=== PATIENT | female | born 2000 | race Hispanic/Latino ===

== ENCOUNTER 2023-01-04 18:42 | Emergency (ER) | payer OTHER ==
[~2023-01-04] VITALS: Ht 160 cm; Wt 81.6 kg
[2023-01-04] MEDS ORDERED: LIDOCAINE VISC 2% SOLN 15 ML UDC PO ONE (20:15)
[2023-01-04] MEDS ORDERED: LIDOCAINE VISC 2% SOLN 15 ML UDC ONE (20:16)
[2023-01-04] MEDS ORDERED: IBUPROFEN 600 MG TAB PO STA (20:31)
[2023-01-04] MEDS ORDERED: AMOXICILLIN/CLAVULANATE K 875 MG TAB PO STA (20:31)
[2023-01-04] MEDS ORDERED: AMOXICILLIN500 MG PO (20:35)
[2023-01-04] MEDS ORDERED: HYDROCODON-ACE1 EA11 PO (20:37)
[2023-01-04] MEDS ORDERED: AMOXICILLIN/CLAVULANATE K 875 MG TAB ONE (20:46)
== END 2023-01-04 20:47 | disposition home or self-care (01) ==
LOC: FSED 19:07
DX: O26.892 Other specified pregnancy related conditions, second trimester (principal); R51.9 Headache, unspecified; K08.89 Other specified disorders of teeth and supporting structures
CPT/HCPCS: 81003; 81025; 99283